=== PATIENT | female | born 1960 | race Caucasian/White ===

== ENCOUNTER → 2017-12-24 10:45 | Outpatient (CLI) | payer OTHER, SELFPAY ==
[2017-12-24 12:39] LABS: Alanine Aminotransferase 27 IU/L (9-52); Albumin 4.5 g/dL (3.5-5.0); Albumin Globulin Ratio 1.5 (1.0-2.8); Alkaline Phosphatase 80 U/L (38-126); Aspartate Aminotransferase 22 IU/L (14-36); Bilirubin Total 0.6 mg/dL (0.2-1.3); Blood Urea Nitrogen 12 mg/dL (7-17); Carbon Dioxide 28 mmol/L (22-32); Chloride 102 mmol/L (98-107); Cholesterol 146 mg/dL (140-199); Estimated Glomerular Filt Rate > 60.0 mL/min (>60); Glucose 227 mg/dL (70-100); HDL Cholesterol 38 mg/dL (40-60); HEMOLYSIS < 15 (0-50); LDL Cholesterol Calculated 76 mg/dL (<100); Potassium 4.4 mmol/L (3.4-5.1); Sodium 141 mmol/L (137-145); Total Protein 7.5 g/dL (6.3-8.2); Triglycerides 159 mg/dL (35-150)
[2017-12-24 13:39] LABS: Hemoglobin A1C% w Est Avg Glu 9.1 % (4.0-6.0)
[2017-12-24 17:25] LABS: Microalbumi Creatinin Ratio Ur 8.8 ug/mg CR (<30); Microalbumin Urine Random < 0.6 mg/dL (0-1.6)
== END ==
PROVIDERS: PCP Physician Assistant; Visit Provider Physician Assistant
DX: E11.65 Type 2 diabetes mellitus with hyperglycemia (principal); E78.2 Mixed hyperlipidemia
CPT/HCPCS: 36415; 80053; 80061; 82043; 82570; 83036

== ENCOUNTER 2018-03-13 06:19 | Day surgery (SDC) | payer OTHER, SELFPAY ==
[2018-02-27 13:45] VITALS: BMI 24.7
--- NOTE | 2018-03-13 | PATH_ITS ---
[facility] Accession Number: [id number] . 01 Material submitted: . CERVIX . 01 Clinical history: . LEEP CONE BIOPSY . 02 Diagnosis: LEEP Cervical Biopsy: High-grade squamous intraepithelial lesion (JEROME-2) present in the sections from the 12-3 o'clock quadrant. Inked biopsy margins appear negative for significant atypia. Negative for evidence of invasive malignancy. MRV/03/16/2018 . 02 Electronically signed: . Marcial Ferrari MD, Pathologist NPI- [id number] . 01 Gross description: . Received in formalin, labeled LEEP cone biopsy of the cervix, SS 6 o'clock, LS 12 o'clock, is a cervical LEEP biopsy in two pieces (1.2 cm 12-6 o'clock, 2.1 cm 3-9 o'clock, 1.0 cm superficial to deep) oriented with two black sutures (short-6 o'clock, long-12 o'clock). The mucosa is cruz-brown, smooth, shiny. The resection margin is pale porras and finely granular. No nodules, masses, or lesions are identified. . Also submitted is an unoriented cervical biopsy (diameter - 1.6 x 1.3 cm, superficial-deep - 0.4 cm) with porras-pink, smooth, shiny mucosa and a pale porras finely granular resection margin. No nodules, masses, or lesions are identified. . Ink code: Black - deep; blue - radial; orange - os/endocervical canal. Section code: Oriented cervical LEEP biopsy is radially sectioned and entirely submitted clockwise from 12 o'clock - (A1) 12-3 o'clock; (A2) 3-6 o'clock; (A3) 6-9 o'clock; (A4) 9-12 o'clock; (A5-A6) unoriented cervical biopsy, radially sectioned. [id number]) /FRR . 02 Pathologist provided ICD-10: N87.1 . 02 CPT . 226357 Performed at: [facility] [address] [id number] MD Cr Vazquez MD Phone: [phone] Performed at: 02 [facility] [address] [place] [id number] MD Blas Kapadia MD Phone: [phone]
[2018-03-13 07:13] VITALS: BMI 24.7
[2018-03-13 07:24] VITALS: BP 109/66; PULSE 86; RESP 16; TEMP 36.4; O2SAT 94
[2018-03-13] MEDS: LACTATED RINGERS 1,000 ML 42 ML IV (07:30)
--- NOTE | 2018-03-13 07:33 | SUR.OPER ---
Lithotomy on padded OR bed, head on pillow, arms secured on padded arm boards at <90 degrees abduction. Legs secured in padded yellow fins stirrups.
--- NOTE | 2018-03-13 07:50 | PM.PREOP ---
Pre-operative Note Interval Note Pre-op Check: Yes History & Physical exam performed today by Physician Changes: No
[2018-03-13 08:39] VITALS: BP 116/61; PULSE 89; RESP 12; TEMP 36.6; O2SAT 97
[2018-03-13 08:44] VITALS: BP 113/62; PULSE 92; RESP 15; O2SAT 96
[2018-03-13 08:49] VITALS: BP 106/60; PULSE 85; RESP 14; O2SAT 96
[2018-03-13 08:55] VITALS: BP 102/62; PULSE 84; RESP 12; TEMP 36.3; O2SAT 97
[2018-03-13 09:20] VITALS: BP 101/69; PULSE 81; RESP 16; TEMP 36.5; O2SAT 95
--- NOTE | 2018-03-16 07:47 | PM.GYNOP.1 ---
Operative Date/Time/Diagnoses Date of procedure: 03/13/18 Time of procedure: 09:15 Pre-op diagnosis: JEROME 2-3 Post-op diagnosis: same Procedure: Procedures Operation Date: 03/13/18 07:45 Actual Procedures Side Surgeon p LEEP Procedure Herlinda Lynne MD Indications: JEROME 2-3 Surgeon: Herlinda Lynne Anesthesia Type: General (Mac) Operative Notes Findings: Lugol's light circumferentially around the cervical os Brisk bleeding at the 7 o'clock position Closure Type: not applicable Specimen(s): other (Anterior lip of the cervix, posterior lip of the cervix, endocervical component) Applied: catheter (In and out) Estimated blood loss (mL): 50 Procedure in detail: After informed consent was obtained, the patient was taken to the operating room where she was placed in the dorsal supine position. After adequate mac anesthesia was achieved, she was placed in the dorsal lithotomy position, and prepped and draped in the usual sterile fashion. A time-out was performed. A plastic coated bivalve speculum was placed into the vagina. A plastic coated single-tooth tenaculum was placed on the anterior lip of the cervix. Lugol's was applied to the cervix. Using the 1.5 cm loop, the anterior lip of the cervix was excised, the posterior lip of the cervix was excised, and an endocervical component was obtained. The Bovie was used to achieve hemostasis on the base of the cone. There was a brisk bleeder at 7 o'clock and a rkdkrh-xw-mbwxd suture with 2 0 chromic was placed for hemostasis. Gel-Foam was placed in the base of the cone. The plastic coated single-tooth tenaculum was removed from the anterior lip of the cervix. The plastic coated bivalve speculum was removed from the vagina. Sponge, lap, and instrument counts were correct x2. Patient tolerated the procedure well, was taken to PACU in stable condition. The anterior lip of the cervix was tagged with a long suture. The posterior lip of the cervix was tagged with a short suture. The endocervical component was untagged. Complications: none Post-operative Condition: stable Disposition: PACU Plan for aftercare: Home after recovery
--- NOTE | 2018-03-16 07:51 | P.OP_ITS ---
Operative Date/Time/Diagnoses Date of procedure: 03/13/18 Time of procedure: 09:15 Pre-op diagnosis: JEROME 2-3 Post-op diagnosis: same Procedure: Procedures Operation Date: 03/13/18 07:45 Actual Procedures Side Surgeon p LEEP Procedure Herlinda Lynne MD Indications: JEROME 2-3 Surgeon: Herlinda Lynne Anesthesia Type: General (Mac) Operative Notes Findings: Lugol's light circumferentially around the cervical os Brisk bleeding at the 7 o'clock position Closure Type: not applicable Specimen(s): other (Anterior lip of the cervix, posterior lip of the cervix, endocervical component) Applied: catheter (In and out) Estimated blood loss (mL): 50 Procedure in detail: After informed consent was obtained, the patient was taken to the operating room where she was placed in the dorsal supine position. After adequate mac anesthesia was achieved, she was placed in the dorsal lithotomy position, and prepped and draped in the usual sterile fashion. A time -out was performed. A plastic coated bivalve speculum was placed into the vagina. A plastic coated single-tooth tenaculum was placed on the anterior lip of the cervix. Lugol's was applied to the cervix. Using the 1.5 cm loop, the anterior lip of the cervix was excised, the posterior lip of the cervix was excised, and an endocervical component was obtained. The Bovie was used to achieve hemostasis on the base of the cone. There was a brisk bleeder at 7 o' clock and a leqwey-pu-oijac suture with 2 0 chromic was placed for hemostasis. Gel-Foam was placed in the base of the cone. The plastic coated single-tooth tenaculum was removed from the anterior lip of the cervix. The plastic coated bivalve speculum was removed from the vagina. Sponge, lap, and instrument counts were correct x2. Patient tolerated the procedure well, was taken to PACU in stable condition. The anterior lip of the cervix was tagged with a long suture. The posterior lip of the cervix was tagged with a short suture. The endocervical component was untagged. Complications: none Post-operative Condition: stable Disposition: PACU Plan for aftercare: Home after recovery
--- NOTE | 2018-03-16 07:51 | PM.HP.1 ---
History of Present Illness Date Patient Seen: 03/13/18 Time Patient Seen: 07:35 Chief complaint: LEEP [id number] Narrative: ASCUS on Pap cannot rule out high-grade Cervical stenosis Patient History Medical History Pap smear anus w ASC-US (Acute) Postmenopausal (Acute) Uncontrolled diabetes mellitus type 2 without complications (Acute) Hyperlipemia (Chronic) Chickenpox (Resolved) Mumps (Resolved) Surgical History History of third molar tooth extraction Status post laparoscopic cholecystectomy Family & Social History Tobacco & Substance use: Smoking Status Never smoker alcohol intake current alcohol intake frequency holiday/special occasion Substance Use Type does not use Meds Home Medications Medication Instructions Recorded Confirmed Type CHOLECALCIFEROL (VITAMIN D3) 1,000 iu PO Q DAY #0 11/21/11 03/13/18 History (Vitamin D-3) Fish Oil 1,200 mg PO Q DAY #0 11/21/11 03/13/18 History MULTIVITAMIN 1 cap PO Q DAY #0 11/21/11 03/13/18 History Coenzyme Q10 (#COENZYME Q-10) 300 mg PO Q DAY #0 12/10/11 03/13/18 History metformin 1,000 mg PO BID #180 tab 01/21/17 03/13/18 Rx atorvastatin 40 mg PO HS #90 tab 07/14/17 03/13/18 Rx albuterol sulfate 90 mcg/actuation 2 puff INHALATION Q6H PRN #1 each 10/04/17 03/13/18 Rx breath activated powder inhaler insulin glargine (U-100) 100 40 unit SUBCUT BEDTIME #20 ml 01/12/18 03/13/18 Rx unit/mL subcutaneous solution oxycodone-acetaminophen [Percocet] 1 tab PO Q4-6H PRN #14 tab 03/13/18 Rx paroxetine HCl [Paxil] 20 mg PO DAILY 03/13/18 03/13/18 History Allergies Allergy/AdvReac Type Severity Reaction Status Date / Time No Known Drug Allergies Allergy Verified 03/13/18 07:10 Exam Vital Signs (past 8 hours): Oxygen Delivery Method Room Air Narrative Exam Narrative: HEENT: No thyromegaly, no anterior cervical or supraclavicular lymphadenopathy. Lungs:Clear to auscultation bilaterally, no wheezes. Cardiovascular: Regular rate and rhythm, no murmurs, rubs, or gallops. Abdomen: No scars. No hepatosplenomegaly. No masses palpable. External genitalia: Normal Vagina: Normal Cervix: Normal Bimanual exam: 6 Week size uterus. Mobile.] Rectal: No masses. Assessment & Plan (1) Pap smear of cervix with ASCUS, cannot exclude HGSIL: Current visit: No Status: Acute (2) Cervical stenosis (uterine cervix): Current visit: No Status: Acute Plan: Assessment/Plan Narrative: Assessment: 57-year-old with ASCUS on Pap cannot rule out high-grade and positive high-risk HPV Cervical stenosis Plan: LEEP cone biopsy of the cervix The risks, benefits, and alternatives to the procedure were explained to the patient. The risks including bleeding, and infection. She understands these risks and agrees to proceed. A full PAR-Q was held and consent form was signed.
== END 2018-03-13 09:30 | disposition home or self-care (01) ==
PROVIDERS: PCP Physician Assistant; Visit Provider Obstetrics & Gynecology
PROC: 0UBC7ZZ Excision of Cervix, Via Natural or Artificial Opening (ICD-10-PCS; CPT 57522; principal; 2018-03-13 07:45)
DX: N87.1 Moderate cervical dysplasia (principal); N88.2 Stricture and stenosis of cervix uteri; E11.9 Type 2 diabetes mellitus without complications; E78.5 Hyperlipidemia, unspecified
CPT/HCPCS: 57522; J2250; J2704; J3010

== ENCOUNTER → 2018-06-08 14:03 | Outpatient (CLI) | payer OTHER, SELFPAY ==
--- NOTE | 2018-06-08 14:06 | DI.MG.S_ITS ---
BILATERAL DIGITAL SCREENING MAMMOGRAM 3D/2D WITH CAD: 06/08/2018 CLINICAL: Routine screening. Comparison is made to exams dated: 01/23/2017 mammogram - [facility], 11/21/2010 mammogram, and 04/01/2008 mammogram - [facility]. There are scattered fibroglandular elements in both breasts. Current study was also evaluated with a Computer Aided Detection (CAD) system. No significant masses, calcifications, or other findings are seen in either breast. There has been no significant interval change. IMPRESSION: NEGATIVE There is no mammographic evidence of malignancy. A 1 year screening mammogram is recommended. This exam was interpreted at Station ID: [id number]. NOTE: For mammograms, a report in lay terms will be sent to the patient. Approximately 15% of breast malignancies will not be visualized mammographically. In the management of a palpable breast mass, a negative mammogram must not discourage biopsy of a clinically suspicious lesion. Electronically Signed By: Chris goyal/kenn:06/08/2018 17:43:54 letter sent: Normal Exam ACR BI-RADS Category 1: Negative 3341F
== END ==
PROVIDERS: PCP Physician Assistant; Visit Provider Physician Assistant
DX: Z12.31 Encounter for screening mammogram for malignant neoplasm of breast (principal)
CPT/HCPCS: 77063; 77067

== ENCOUNTER → 2018-08-26 09:13 | Outpatient (CLI) | payer OTHER, SELFPAY ==
[2018-08-26 10:38] LABS: Hemoglobin A1C% w Est Avg Glu 9.3 % (4.0-6.0)
[2018-08-26 11:14] LABS: Alanine Aminotransferase 27 IU/L (9-52); Albumin 4.7 g/dL (3.5-5.0); Albumin Globulin Ratio 1.6 (1.0-2.8); Alkaline Phosphatase 83 U/L (38-126); Aspartate Aminotransferase 21 IU/L (14-36); Bilirubin Total 0.4 mg/dL (0.2-1.3); Blood Urea Nitrogen 15 mg/dL (7-17); Calcium 10.3 mg/dL (8.4-10.2); Carbon Dioxide 27 mmol/L (22-32); Chloride 102 mmol/L (98-107); Cholesterol 160 mg/dL (140-199); Estimated Glomerular Filt Rate > 60.0 mL/min (>60); Globulin 2.9 g/dL (1.7-4.1); Glucose 140 mg/dL (70-100); HDL Cholesterol 39 mg/dL (40-60); HEMOLYSIS < 15 (0-50); LDL Cholesterol Calculated 98 mg/dL (<100); Potassium 4.6 mmol/L (3.4-5.1); Sodium 140 mmol/L (137-145); Total Protein 7.6 g/dL (6.3-8.2); Triglycerides 117 mg/dL (35-150)
[2018-08-26 12:00] LABS: Creatinine Urine Random 83.7 mg/dL
[2018-08-26 12:05] LABS: Microalbumi Creatinin Ratio Ur 16.7 ug/mg CR (<30); Microalbumin Urine Random 1.4 mg/dL (0-1.6)
== END ==
PROVIDERS: PCP Physician Assistant; Visit Provider Physician Assistant
DX: E11.65 Type 2 diabetes mellitus with hyperglycemia (principal); E78.2 Mixed hyperlipidemia
CPT/HCPCS: 36415; 80053; 80061; 82043; 82570; 83036

== ENCOUNTER → 2019-06-16 10:30 | Outpatient (CLI) | payer OTHER, SELFPAY ==
[2019-06-16 11:04] LABS: Hemoglobin A1C% w Est Avg Glu 9.6 % (4.0-6.0)
[2019-06-16 11:07] LABS: Cholesterol 149 mg/dL (140-199); HDL Cholesterol 37 mg/dL (40-60); LDL Cholesterol Calculated 87 mg/dL (<100); Triglycerides 125 mg/dL (35-150)
== END ==
PROVIDERS: PCP Physician Assistant; Visit Provider Internal Medicine Endocrinology, Diabetes & Metabolism
DX: E11.65 Type 2 diabetes mellitus with hyperglycemia (principal); E78.2 Mixed hyperlipidemia; E11.9 Type 2 diabetes mellitus without complications; Z79.4 Long term (current) use of insulin
CPT/HCPCS: 36415; 80061; 83036

== ENCOUNTER → 2020-03-27 12:16 | Outpatient (CLI) | payer OTHER, SELFPAY ==
[2020-03-29 08:26] LABS: COVID19 Sendout Not Detected (Not Detect)
== END ==
PROVIDERS: PCP Nurse Practitioner Family; Visit Provider Physician Assistant
DX: Z11.59 Encounter for screening for other viral diseases (principal)
CPT/HCPCS: 87635

== ENCOUNTER → 2020-04-10 09:50 | Outpatient (CLI) | payer OTHER, SELFPAY ==
[2020-04-10 12:02] LABS: COVID19 -Nasal RAPID Negative (Negative)
== END ==
PROVIDERS: PCP Nurse Practitioner Family; Visit Provider Physician Assistant
DX: Z11.59 Encounter for screening for other viral diseases (principal)
CPT/HCPCS: 87635

== ENCOUNTER → 2020-05-09 09:08 | Outpatient (CLI) | payer OTHER, SELFPAY ==
[2020-05-09 09:43] LABS: Hematocrit 42.7 % (36-46); Hemoglobin 14.7 g/dL (12.0-16.0); Mean Corpuscular HGB Conc 34.4 % (30-36); Mean Corpuscular Volume 95.9 fL (80-100); Platelet Count 331 X10^3/uL (150-400); Red Blood Cell Count 4.45 X10^6/uL (4.0-5.2); Red Cell Distribution Width 12.5 % (11.6-14.8); White Blood Cell Count 5.3 X10^3/uL (4.5-11.0)
[2020-05-09 10:10] LABS: Alanine Aminotransferase 53 IU/L (<35); Albumin 4.5 g/dL (3.5-5.0); Albumin Globulin Ratio 1.5 (1.0-2.8); Alkaline Phosphatase 87 U/L (38-126); Aspartate Aminotransferase 27 IU/L (14-36); BUN Creatinine Ratio 23.2 (6-22); Bilirubin Total 0.7 mg/dL (0.2-1.3); Blood Urea Nitrogen 13 mg/dL (7-17); Calcium 10.6 mg/dL (8.4-10.2); Carbon Dioxide 31 mmol/L (22-32); Chloride 99 mmol/L (98-107); Cholesterol 175 mg/dL (140-199); Estimated Glomerular Filt Rate > 60.0 mL/min (>60); Globulin 3.1 g/dL (1.7-4.1); Glucose 239 mg/dL (70-100); HDL Cholesterol 31 mg/dL (40-60); HEMOLYSIS < 15 (0-50); LDL Cholesterol Calculated 92 mg/dL (<100); Potassium 3.8 mmol/L (3.4-5.1); Sodium 137 mmol/L (137-145); Total Protein 7.6 g/dL (6.3-8.2); Triglycerides 259 mg/dL (35-150)
[2020-05-09 10:14] LABS: Hemoglobin A1C% w Est Avg Glu 10.1 % (4.0-6.0)
== END ==
PROVIDERS: PCP Nurse Practitioner Family; Referring Provider Nurse Practitioner Family; Visit Provider Nurse Practitioner Family
DX: Z00.00 Encounter for general adult medical examination without abnormal findings (principal); E11.65 Type 2 diabetes mellitus with hyperglycemia; E78.2 Mixed hyperlipidemia
CPT/HCPCS: 36415; 80053; 80061; 83036; 85027

== ENCOUNTER → 2020-06-15 12:49 | Outpatient (CLI) | payer OTHER, SELFPAY ==
--- NOTE | 2020-06-15 14:17 | DIET.PN ---
Diabetes Intake: Initial Assessment Assess: Ms. Alan is a 59 yof referred for type 2 diabetes. She reports long standing hx with aggressively increasing A1c. She has been monitoring her fasting blood sugar and aiming to walk 9000 steps daily. She admits her downfalls are starchy foods and night time snacking. Labs: Per pt report: A1c: 10.1 Tot chol: 175 LDL: 92 HDL: 31 Tr Meds: lantus 25u am/ 20 u pm ; metf 1000mg BID Diet: per 24 hr recall: B: sc eggs or cottage cheese L: protein shake w/ spinach fruit D: pork chop w/ salad; stewed chicken over rice Sn: popcorn, chips, veggies w/ ranch, yogurt, ice cream Wt: 135lb Ht: 64in BMI: 23.2 DX: Altered nutrition related laboratory values related to impaired glucose metabolism, lack of previous exposure to nutrition information as evidenced by pt report, diagnosis of diabetes, previous diet high in refined carbohydrates. Intervention: 1. Completed intake assessment. Discussed barriers to care. 2. Discussed pathophysiology of diabetes. Reviewed A1c and its correlation to blood glucose numbers. Discussed recommended BG ranges. 3. Discussed importance of self-monitoring, how often, and when to check. 4. Reviewed hyper/hypoglycemia and treatment. 5. Reviewed safe disposal of equipment (strip/lancets/insulin needles). 6. Created SMART goals for pt self-care and success. 7. Discussed program curriculum outline and class needs based on individual goals. SMART Goals: 1. Pt goal of A1c <7.0 through dietary changes including consistent carb intake, 8/16 intermittent fasting, regular exercise, and monitoring fasting and 2 hr PP 1 meal/day. Monitor/Evaluate: Pt will attend full DSME program. Exercise class scheduled Jun 27.
== END ==
PROVIDERS: PCP Nurse Practitioner Family; Referring Provider Nurse Practitioner Family; Visit Provider Nurse Practitioner Family
DX: E11.9 Type 2 diabetes mellitus without complications (principal); Z79.4 Long term (current) use of insulin; Z71.3 Dietary counseling and surveillance
CPT/HCPCS: G0108

== ENCOUNTER → 2020-06-28 16:09 | Outpatient (CLI) | payer OTHER, SELFPAY ==
--- NOTE | 2020-06-28 16:10 | DI.MG.S_ITS ---
BILATERAL DIGITAL SCREENING MAMMOGRAM 3D/2D WITH CAD: 06/28/2020 CLINICAL: Routine screening. Comparison is made to exams dated: 06/08/2018 mammogram and 01/23/2017 mammogram - [facility]. There are scattered fibroglandular elements in both breasts. Current study was also evaluated with a Computer Aided Detection (CAD) system. No significant masses, calcifications, or other findings are seen in either breast. There has been no significant interval change. IMPRESSION: NEGATIVE There is no mammographic evidence of malignancy. A 1 year screening mammogram is recommended. This exam was interpreted at Station ID: [id number]. NOTE: For mammograms, a report in lay terms will be sent to the patient. Approximately 15% of breast malignancies will not be visualized mammographically. In the management of a palpable breast mass, a negative mammogram must not discourage biopsy of a clinically suspicious lesion. Electronically Signed By: Audi liao/kenn:06/28/2020 16:45:53 letter sent: Normal Exam ACR BI-RADS Category 1: Negative 3341F
== END ==
PROVIDERS: PCP Nurse Practitioner Family; Referring Provider Nurse Practitioner Family; Visit Provider Nurse Practitioner Family
DX: Z12.31 Encounter for screening mammogram for malignant neoplasm of breast (principal)
CPT/HCPCS: 77063; 77067

== ENCOUNTER → 2020-07-04 13:50 | Outpatient (CLI) | payer OTHER, SELFPAY ==
--- NOTE | 2020-07-04 15:15 | DIET.PN ---
Diabetes: Healthy Eating 1 Intervention: ? Discussed pathophysiology of diabetes and impact of nutrition/diet on blood sugar control.? Discussed fed versus non-fed state.?? ? Reviewed importance of Balance, Variety, and Moderation. ? Discussed the effect of carbohydrates/protein/fat on blood sugar control.? ? Stressed importance of consistent carbohydrate intake at each meal and provided instructions for recommended servings/portions of carbohydrates/protein per meal. Provided educational material. ? Reviewed carbohydrate counting and measuring carbohydrate content via serving sizes and reading nutrition labels.? Provided handouts.?? ? Discussed the difference between simple versus complex carbohydrates and the effect of fiber on blood sugar control.? Discussed various methods to increase fiber content in diet. ? Discussed the plate method for creating more carbohydrate conscious balanced meals. ? Stressed importance of meal timing and not going >4-5 hours between meals. Encouraged adding protein to evening snack to support glucose control overnight. ? Discussed importance of making dietary habits part of lifestyle change.
== END ==
PROVIDERS: PCP Nurse Practitioner Family; Referring Provider Nurse Practitioner Family; Visit Provider Nurse Practitioner Family
DX: E11.9 Type 2 diabetes mellitus without complications (principal); Z71.3 Dietary counseling and surveillance
CPT/HCPCS: G0109

== ENCOUNTER → 2020-07-11 13:59 | Outpatient (CLI) | payer OTHER, SELFPAY ==
--- NOTE | 2020-07-11 15:36 | DIET.PN ---
Diabetes: Healthy Eating 2 Intervention: Fats effects on glucose, weight, heart disease, cholesterol Sat Vs Unsat Protein- animal and plant based options Low, med, high fat meats Sugar substitutes Sodium Health claims Grocery shopping guidelines Eating away from home Alcohol Sick day guidelines Ketone Testing
== END ==
PROVIDERS: PCP Nurse Practitioner Family; Referring Provider Nurse Practitioner Family; Visit Provider Nurse Practitioner Family
DX: E11.9 Type 2 diabetes mellitus without complications (principal); Z71.3 Dietary counseling and surveillance
CPT/HCPCS: G0109

== ENCOUNTER → 2020-07-18 13:49 | Outpatient (CLI) | payer OTHER, SELFPAY ==
--- NOTE | 2020-07-18 15:49 | DIET.PN ---
Diabetes Physiology and Medications: Intervention 1. Diabetes physiology 2. Detecting and treatment of acute and chronic complications 3. Diagnosis of and difference in types of diabetes 4. Self-monitoring and pattern management a. Demonstrate glucometer and control testing b. Explain BG results and action to take when out of range. 5. Foot , eye, dental care 6. Medications a. Oral medication classification b. Injectable c. Insulin i. Injection protocol ii. Other delivery methods
== END ==
PROVIDERS: PCP Nurse Practitioner Family; Referring Provider Nurse Practitioner Family; Visit Provider Nurse Practitioner Family
DX: E11.9 Type 2 diabetes mellitus without complications (principal); Z71.3 Dietary counseling and surveillance
CPT/HCPCS: G0109

== ENCOUNTER → 2020-07-25 13:42 | Outpatient (CLI) | payer OTHER, SELFPAY ==
--- NOTE | 2020-07-25 16:14 | DIET.PN ---
Diabetes Exercise/Lifestyle change: 1. Importance of exercise 2. FITT (frequency, intensity, time, type) 3. Strength training tips and guidelines 4. Glucose monitoring/ranges before and after a. Carbohydrate needs based on glucose ranges and duration/intensity of exercise b. Rule of 15 5. Proper foot attire 6. Developing strategies for behavior change 7. SMART Goal Setting 8. Home exercise routine demonstration (as a class)
== END ==
PROVIDERS: PCP Nurse Practitioner Family; Referring Provider Nurse Practitioner Family; Visit Provider Nurse Practitioner Family
DX: E11.9 Type 2 diabetes mellitus without complications (principal); Z71.3 Dietary counseling and surveillance
CPT/HCPCS: G0109

== ENCOUNTER → 2020-07-26 13:43 | Outpatient (CLI) | payer OTHER, SELFPAY ==
--- NOTE | 2020-07-26 14:47 | DIET.PN ---
DIABETES Nutrition Initial Assessment:? ASSESS:?? Ms. Alan is a 59 yof?referred for type 2 diabetes seen as part of DSME program. Since beginning the program, she has made several changes to her eating patterns including carbo counting, portion control, including protein with meals and snacks, and eating breakfast. She endorses feeling hungrier since she is eating in the morning now, but has been noticing changes in her glucose. She has had a few hyperglycemic events recently, but believes this could be related to new strips with a new code. ??? LABS: Per pt report:? 105-180 (>200 x2) ? MEDS:?? lantus 25 u am/20 u pm; metf 1000mg BID ? DIET: Per 24-hour recall:? Eating Out: 1-3 x/wk Changes in Appetite: increased Nutrition Supplements: Verna ACV gummies ? Weight: 138 Height: 64in BMI: ? 23.7 ? Exercise:? walking most days NUTRITION DX 1. Altered Nutrition related labs related to impaired glucose metabolism, lack of previous exposure to accurate nutrition information as evidenced by pt report, dx of diabetes, previous diet high in refined carbohydrates.? INTERVENTION(s): 1. Reviewed pathophysiology of diabetes and impact of nutrition/diet on blood sugar control.? Discussed fed versus non-fed state.?? 2. Discussed the effect of carbohydrates/protein/fat on blood sugar control.? 3. Reviewed carbohydrate counting and measuring carbohydrate content via serving sizes and reading nutrition labels.? 4. Stressed importance of meal timing and not going >4-5 hours between meals. Encouraged adding protein to evening snack to support glucose control overnight. Patient agreeable. 5. Discussed healthy weight loss goals of 1-2lbs per week through diet and exercise.? Pt agreeable to walking at least 30 minutes daily. 6. Recommend monitoring fasting and alternating 2 hr PP mealtime glucose. 7. Will discuss medication management as needed following new labs. MONITOR/EVALUATE: Anticipate good compliance.? Nutrition follow-up scheduled for 1 month.
== END ==
PROVIDERS: PCP Nurse Practitioner Family; Referring Provider Nurse Practitioner Family; Visit Provider Nurse Practitioner Family
DX: E11.9 Type 2 diabetes mellitus without complications (principal); Z79.4 Long term (current) use of insulin
CPT/HCPCS: G0109

== ENCOUNTER → 2020-08-02 11:03 | Outpatient (CLI) | payer OTHER, SELFPAY ==
[2020-08-02] MEDS: COVID-19 VACC, Ad26(JANSSEN)/PF 0.5 ML IM (11:50)
== END ==
PROVIDERS: PCP Nurse Practitioner Family; Visit Provider Internal Medicine
DX: Z23 Encounter for immunization (principal)
CPT/HCPCS: 0031A; 91303

== ENCOUNTER → 2020-08-09 11:02 | Outpatient (CLI) | payer OTHER, SELFPAY ==
[2020-08-09 12:20] LABS: Hemoglobin A1C% w Est Avg Glu 8.3 % (4.0-6.0)
[2020-08-09 12:26] LABS: Alanine Aminotransferase 25 IU/L (<35); Albumin 4.9 g/dL (3.5-5.0); Albumin Globulin Ratio 1.5 (1.0-2.8); Alkaline Phosphatase 77 U/L (38-126); Aspartate Aminotransferase 31 IU/L (14-36); BUN Creatinine Ratio 28.1 (6-22); Bilirubin Total 0.6 mg/dL (0.2-1.3); Blood Urea Nitrogen 16 mg/dL (7-17); Calcium 10.8 mg/dL (8.4-10.2); Carbon Dioxide 29 mmol/L (22-32); Chloride 102 mmol/L (98-107); Cholesterol 157 mg/dL (140-199); Estimated Glomerular Filt Rate > 60.0 mL/min (>60); Globulin 3.3 g/dL (1.7-4.1); Glucose 94 mg/dL (70-100); HDL Cholesterol 33 mg/dL (40-60); HEMOLYSIS < 15 (0-50); LDL Cholesterol Calculated 97 mg/dL (<100); Potassium 3.9 mmol/L (3.4-5.1); Sodium 138 mmol/L (137-145); Total Protein 8.2 g/dL (6.3-8.2); Triglycerides 137 mg/dL (35-150)
[2020-08-10 13:18] LABS: Parathyroid Hormone, Intact 109 pg/mL (15-65)
== END ==
PROVIDERS: PCP Nurse Practitioner Family; Referring Provider Nurse Practitioner Family; Visit Provider Nurse Practitioner Family
DX: Z00.00 Encounter for general adult medical examination without abnormal findings (principal); E11.65 Type 2 diabetes mellitus with hyperglycemia; E83.52 Hypercalcemia; E78.2 Mixed hyperlipidemia
CPT/HCPCS: 36415; 80053; 80061; 82310; 83036; 83970

== ENCOUNTER → 2020-08-30 13:51 | Outpatient (CLI) | payer OTHER, SELFPAY ==
--- NOTE | 2020-08-30 14:41 | DIET.PN ---
Diabetes Follow Up Assess: Ms. Alan is a 59 yof seen for 3 mo follow up visit. She continues to follow recommended nutritional guidelines including balanced meals, portion control, consistent meal times, and added protein. She has been exercising daily. Labs: A1c: 8.3 (from 10.1) Meds: lantus 25 u am/20 u pm; metf 1000mg BID Dietary changes: limiting sugary evening snacks; balanced meals Ht: 64in Wt: 139lb BMI: 23.9 Nutrition DX: Altered nutrition related laboratory values related to impaired glucose metabolism, lack of previous exposure to nutrition information as evidenced by pt report, diagnosis of diabetes, previous diet high in refined carbohydrates. Intervention: 1. Completed follow up assessment. Reviewed barriers to care. 2. Reviewed new labs and importance of continued BG monitoring. 3. Reviewed SMART goals and made modifications where appropriate including wt management, activity, and A1c goals. 4. Discussed plan for ongoing support. Provided information for continued support and success. SMART goals: 1. Pt goal A1c <7.0 and weight of <130 in the next 3 mo through improved dietary changes and daily exercise. Monitor/Evaluate: Pt will follow up in 3 mo to discuss new labs and barriers to care.
== END ==
PROVIDERS: PCP Nurse Practitioner Family; Referring Provider Nurse Practitioner Family; Visit Provider Nurse Practitioner Family
DX: E11.9 Type 2 diabetes mellitus without complications (principal); Z79.4 Long term (current) use of insulin
CPT/HCPCS: G0109

== ENCOUNTER → 2020-09-08 14:41 | Outpatient (CLI) | payer OTHER, SELFPAY | PROVIDERS: PCP Nurse Practitioner Family; Referring Provider Nurse Practitioner Family; Visit Provider Nurse Practitioner Family | DX: M85.851 Other specified disorders of bone density and structure, right thigh (principal); Z78.0 Asymptomatic menopausal state; E11.9 Type 2 diabetes mellitus without complications; E21.0 Primary hyperparathyroidism | CPT/HCPCS: 77080 ==

== ENCOUNTER → 2020-12-06 09:33 | Outpatient (CLI) | payer OTHER, SELFPAY ==
[2020-12-06 10:39] LABS: Alanine Aminotransferase 23 IU/L (<35); Albumin 4.5 g/dL (3.5-5.0); Albumin Globulin Ratio 1.6 (1.0-2.8); Alkaline Phosphatase 77 U/L (38-126); Aspartate Aminotransferase 26 IU/L (14-36); Bilirubin Total 0.4 mg/dL (0.2-1.3); Blood Urea Nitrogen 15 mg/dL (7-17); Calcium 10.3 mg/dL (8.4-10.2); Carbon Dioxide 31 mmol/L (22-32); Chloride 103 mmol/L (98-107); Estimated Glomerular Filt Rate > 60.0 mL/min (>60); Globulin 2.9 g/dL (1.7-4.1); Glucose 144 mg/dL (70-100); HEMOLYSIS < 15 (0-50); Potassium 4.3 mmol/L (3.4-5.1); Sodium 139 mmol/L (137-145); Total Protein 7.4 g/dL (6.3-8.2)
[2020-12-06 11:06] LABS: Vitamin D 25 Hydroxy (D3) 64.3 ng/mL (30.0-100.0)
[2020-12-06 11:10] LABS: Free T4, Direct Thyroxine 0.98 ng/dL (0.78-2.19)
[2020-12-06 11:24] LABS: Thyroid Stimulating Hormone 1.47 uIU/mL (0.47-4.68)
[2020-12-07 11:59] LABS: Calcium 10.4 mg/dL (8.7-10.2); Parathyroid Hormone, Intact 101 pg/mL (15-65)
== END ==
PROVIDERS: PCP Nurse Practitioner Family; Referring Provider Internal Medicine Endocrinology, Diabetes & Metabolism; Visit Provider Internal Medicine Endocrinology, Diabetes & Metabolism
DX: E21.3 Hyperparathyroidism, unspecified (principal); E11.65 Type 2 diabetes mellitus with hyperglycemia; Z79.4 Long term (current) use of insulin; Z68.24 Body mass index [BMI] 24.0-24.9, adult
CPT/HCPCS: 36415; 80053; 82306; 82310; 83970; 84439; 84443

== ENCOUNTER → 2020-12-12 09:53 | Outpatient (CLI) | payer OTHER, SELFPAY ==
[2020-12-12 11:46] LABS: Collection Time Urine 24 Hours; Creatinine 24 Hour Urine 857 mg/day (800-1800); Creatinine Urine Random 57.1 mg/dL; Total Volume Urine 1500 mL
[2020-12-12 12:50] LABS: Calcium 24 Hour Urine 395 mg/day (100-300); Calcium Urine Random 26.3 mg/dL; Collection Time Urine 24 Hours; Total Volume Urine 1500 mL
== END ==
PROVIDERS: PCP Nurse Practitioner Family; Referring Provider Internal Medicine Endocrinology, Diabetes & Metabolism; Visit Provider Internal Medicine Endocrinology, Diabetes & Metabolism
DX: E21.3 Hyperparathyroidism, unspecified (principal); Z68.24 Body mass index [BMI] 24.0-24.9, adult; E11.65 Type 2 diabetes mellitus with hyperglycemia; Z79.4 Long term (current) use of insulin
CPT/HCPCS: 82340; 82570

== ENCOUNTER → 2021-02-21 10:26 | Outpatient (CLI) | payer OTHER, SELFPAY ==
--- NOTE | 2021-02-21 | DI.US.S_ITS ---
PROCEDURE: US THYROID INDICATIONS: HYPERPARATHYROIDISM TECHNIQUE: Real-time scanning was performed of the thyroid gland, with image documentation. COMPARISON: None. FINDINGS: Right: Thyroid lobe measures 4.2 x 1.3 x 1.4 cm, and is homogeneous in echotexture. Left: Thyroid lobe measures 4.6 x 1.5 x 1.7 cm, and is homogenous in echotexture. Isthmus: 3 mm thick. Nodule number: 1 Location: Left mid superior thyroid Size: 2.0 x 1.4 x 1.4 cm. Composition: Predominantly solid Echogenicity: Isoechoic/hypoechoic Shape: wider than tall. Margins: Smooth Echogenic foci: None Total points: 4 ACR TI-RADS category: 4 Recommendation: Fine-needle aspiration Nodule number: 2 Location: Left inferior thyroid Size: 0.8 x 0.5 x 0.6 cm. Composition: Solid Echogenicity: Isoechoic Shape: wider than tall. Margins: Smooth Echogenic foci: Punctate Total points: 6 ACR TI-RADS category: 4 Recommendation: Follow-up ultrasound at 1, 2, 3 and 5 years. Nodule number: 3 Location: Right mid thyroid Size: 0.9 x 0.8 x 0.6 cm. Composition: Solid Echogenicity: Predominantly calcified/hyperechoic Shape: wider than tall. Margins: Irregular Echogenic foci: Macro calcifications Total points: 4 ACR TI-RADS category: 4 Recommendation: Follow-up at 1, 2, 3, and 5 years Nodule number: 4 Location: Right isthmus Size: 1.0 x 0.3 x 0.7 cm. Composition: Solid Echogenicity: Isoechoic Shape: wider than tall. Margins: Smooth Echogenic foci: Punctate Total points: 6 ACR TI-RADS category: 4 Recommendation: Follow-up ultrasound at 1, 2, 3, and 5 years. IMPRESSION: 1. Bilateral thyroid nodules as described above. 2. Fine-needle aspiration of the left mid superior thyroid nodule is recommended. 3. Follow-up of remaining nodules is recommended as described above. ACR TI-RADS definitions and recommendations: TI-RADS 1 (benign): 0 points. FNA not needed. TI-RADS 2 (not suspicious): 2 points. FNA not needed. TI-RADS 3 (mildly suspicious): 3 points. * FNA if 2.5 cm or larger, follow up if 1.5 cm or larger (at 1, 3, and 5 years). TI-RADS 4 (moderately suspicious): 4-6 points. * FNA if 1.5 cm or larger, follow up if 1 cm or larger (at 1, 2, 3, and 5 years). TI-RADS 5 (highly suspicious): 7 points or more. * FNA if 1 cm or larger, follow up if 0.5 cm or larger (every year for 5 years). Dictated by: Juanis Tuttle M.D. on 02/21/2021 at 14:01 Approved by: Juanis Tuttle M.D. on 02/21/2021 at 16:59
== END ==
PROVIDERS: PCP Nurse Practitioner Family; Referring Provider Internal Medicine Endocrinology, Diabetes & Metabolism; Visit Provider Internal Medicine Endocrinology, Diabetes & Metabolism
DX: E21.3 Hyperparathyroidism, unspecified (principal); E04.2 Nontoxic multinodular goiter
CPT/HCPCS: 76536

== ENCOUNTER → 2022-01-16 11:07 | Outpatient (CLI) | payer OTHER, SELFPAY ==
[2022-01-16 12:01] LABS: Hemoglobin 13.9 g/dL (12.0-16.0); Mean Corpuscular HGB Conc 34.9 % (30-36); Mean Corpuscular Volume 94.6 fL (80-100); Platelet Count 335 X10^3/uL (150-400); Red Blood Cell Count 4.23 X10^6/uL (4.0-5.2); Red Cell Distribution Width 12.7 % (11.6-14.8); White Blood Cell Count 6.5 X10^3/uL (4.5-11.0)
[2022-01-16 12:10] LABS: Alanine Aminotransferase 27 IU/L (<35); Albumin 4.7 g/dL (3.5-5.0); Albumin Globulin Ratio 1.6 (1.0-2.8); Alkaline Phosphatase 96 U/L (38-126); Aspartate Aminotransferase 27 IU/L (14-36); BUN Creatinine Ratio 17.5 (6-22); Bilirubin Total 0.5 mg/dL (0.2-1.3); Blood Urea Nitrogen 10 mg/dL (7-17); Calcium 10.8 mg/dL (8.4-10.2); Carbon Dioxide 28 mmol/L (22-32); Chloride 101 mmol/L (98-107); Cholesterol 165 mg/dL (140-199); Estimated Glomerular Filt Rate > 60 mL/min (>60); Globulin 2.9 g/dL (1.7-4.1); Glucose 122 mg/dL (80-110); HDL Cholesterol 52 mg/dL (40-60); HEMOLYSIS < 15 (0-50); LDL Cholesterol Calculated 83 mg/dL (<100); Potassium 4.4 mmol/L (3.4-5.1); Sodium 138 mmol/L (137-145); Total Protein 7.6 g/dL (6.3-8.2); Triglycerides 150 mg/dL (35-150)
[2022-01-16 12:14] LABS: Hemoglobin A1C% w Est Avg Glu 9.4 % (4.0-6.0)
[2022-01-16 12:27] LABS: Vitamin D 25 Hydroxy (D3) 69.3 ng/mL (30.0-100.0)
[2022-01-16 12:41] LABS: TSH w/ Reflex to FT4 1.29 uIU/mL (0.47-4.68)
[2022-01-16 17:13] LABS: Creatinine Urine Random 29.8 mg/dL
[2022-01-16 17:17] LABS: Microalbumin Urine Random < 0.6 mg/dL (0-1.6)
[2022-01-17 04:49] LABS: Hepatitis B Surf AB Quant 58.2 mIU/mL (Immunity>9.9)
[2022-01-17 14:00] LABS: Parathyroid Hormone, Intact 97 pg/mL (15-65)
[2022-01-17 16:47] LABS: Rubella Antibody IgG 12.7 IU/mL (>15)
== END ==
PROVIDERS: PCP Registered Nurse Diabetes Educator; Referring Provider Registered Nurse Diabetes Educator; Visit Provider Registered Nurse Diabetes Educator
DX: Z01.84 Encounter for antibody response examination (principal); E11.65 Type 2 diabetes mellitus with hyperglycemia; E21.0 Primary hyperparathyroidism
CPT/HCPCS: 36415; 80053; 80061; 82043; 82306; 82310; 82570; 83036; 83970; 84443; 85027; 86706; 86735; 86762; 86765

== ENCOUNTER → 2022-02-07 15:39 | Outpatient (CLI) | payer OTHER, SELFPAY ==
--- NOTE | 2022-02-07 15:40 | DI.MG.S_ITS ---
BILATERAL DIGITAL SCREENING MAMMOGRAM 3D/2D WITH CAD: 02/07/2022 CLINICAL: Routine screening. Comparison is made to exams dated: 06/28/2020 mammogram, 06/08/2018 mammogram, and 01/23/2017 mammogram - [facility]. There are scattered areas of fibroglandular density in both breasts (category b / 25%-50% glandular tissue). Current study was also evaluated with a Computer Aided Detection (CAD) system. No significant masses, calcifications, or other findings are seen in either breast. There has been no significant interval change. IMPRESSION: NEGATIVE There is no mammographic evidence of malignancy. A 1 year screening mammogram is recommended. Based on the Tyrer Cuzick model (a risk assessment model) the patient's lifetime risk is 6.3% and her 10 year risk is 2.6%. According to the ACR, ACS, and NCCN guidelines, an annual breast MRI exam along with mammogram is recommended if the patient's lifetime risk is 20% or greater. This exam was interpreted at Station ID: [id number]. NOTE: For mammograms, a report in lay terms will be sent to the patient. Approximately 15% of breast malignancies will not be visualized mammographically. In the management of a palpable breast mass, a negative mammogram must not discourage biopsy of a clinically suspicious lesion. Electronically Signed By: Baron tate/kenn:02/08/2022 08:32:24 letter sent: Normal Exam ACR BI-RADS Category 1: Negative 3341F
== END ==
PROVIDERS: PCP Registered Nurse Diabetes Educator; Referring Provider Registered Nurse Diabetes Educator; Visit Provider Registered Nurse Diabetes Educator
DX: Z12.31 Encounter for screening mammogram for malignant neoplasm of breast (principal)
CPT/HCPCS: 77063; 77067

== ENCOUNTER → 2022-06-22 10:56 | Outpatient (CLI) | payer OTHER, SELFPAY ==
[2022-06-22 12:28] LABS: Alanine Aminotransferase 35 IU/L (<35); Albumin 4.8 g/dL (3.5-5.0); Albumin Globulin Ratio 1.4 (1.0-2.8); Alkaline Phosphatase 92 U/L (38-126); Aspartate Aminotransferase 31 IU/L (14-36); BUN Creatinine Ratio 22.8 (6-22); Bilirubin Total 0.9 mg/dL (0.2-1.3); Blood Urea Nitrogen 13 mg/dL (7-17); Calcium 10.2 mg/dL (8.4-10.2); Carbon Dioxide 27 mmol/L (22-32); Chloride 101 mmol/L (98-107); Cholesterol 172 mg/dL (140-199); Estimated Glomerular Filt Rate > 60 mL/min (>60); Globulin 3.4 g/dL (1.7-4.1); Glucose 220 mg/dL (80-110); HDL Cholesterol 34 mg/dL (40-60); HEMOLYSIS < 15 (0-50); LDL Cholesterol Calculated 102 mg/dL (<100); Phosphorous 2.8 mg/dL (2.8-4.1); Potassium 4.3 mmol/L (3.4-5.1); Sodium 138 mmol/L (137-145); Total Protein 8.2 g/dL (6.3-8.2); Triglycerides 180 mg/dL (35-150)
[2022-06-22 12:44] LABS: Vitamin D 25 Hydroxy (D3) 73.1 ng/mL (30.0-100.0)
[2022-06-26 02:26] LABS: Calcium 10.6 mg/dL (8.7-10.3); Parathyroid Hormone, Intact 105 pg/mL (15-65)
== END ==
PROVIDERS: PCP Registered Nurse Diabetes Educator; Referring Provider Internal Medicine Endocrinology, Diabetes & Metabolism; Visit Provider Internal Medicine Endocrinology, Diabetes & Metabolism
DX: E21.3 Hyperparathyroidism, unspecified (principal); E11.65 Type 2 diabetes mellitus with hyperglycemia; Z79.4 Long term (current) use of insulin
CPT/HCPCS: 36415; 80053; 80061; 82306; 82310; 83036; 83970; 84100

== ENCOUNTER → 2022-10-05 07:40 | Outpatient (CLI) | payer OTHER, SELFPAY ==
[2022-10-05 09:52] LABS: HEMOLYSIS < 15 (0-50); Potassium 4.3 mmol/L (3.4-5.1)
[2022-10-05 09:53] LABS: BUN Creatinine Ratio 29.4 (6-22); Blood Urea Nitrogen 15 mg/dL (7-17); Calcium 9.9 mg/dL (8.4-10.2); Carbon Dioxide 27 mmol/L (22-32); Chloride 102 mmol/L (98-107); Cholesterol 168 mg/dL (140-199); Creatinine Urine Random 79.5 mg/dL; Estimated Glomerular Filt Rate > 60 mL/min (>60); Glucose 201 mg/dL (80-110); HDL Cholesterol 45 mg/dL (40-60); LDL Cholesterol Calculated 98 mg/dL (<100); Phosphorous 2.8 mg/dL (2.8-4.1); Sodium 137 mmol/L (137-145); Triglycerides 126 mg/dL (35-150)
[2022-10-05 09:56] LABS: Microalbumi Creatinin Ratio Ur 32.7 ug/mg CR (<30); Microalbumin Urine Random 2.6 mg/dL (0-1.6)
[2022-10-05 10:09] LABS: Vitamin D 25 Hydroxy (D3) 70.3 ng/mL (30.0-100.0)
[2022-10-06 08:15] LABS: x Labcorp Estim. Avg Glu (eAG) 223 mg/dL (.); x Labcorp Hemoglobin A1c 9.4 % (4.8-5.6)
[2022-10-08 07:50] LABS: Parathyroid Hormone Int 117 pg/mL (15-65)
== END ==
PROVIDERS: PCP Registered Nurse Diabetes Educator; Referring Provider Internal Medicine Endocrinology, Diabetes & Metabolism; Visit Provider Internal Medicine Endocrinology, Diabetes & Metabolism
DX: E11.65 Type 2 diabetes mellitus with hyperglycemia (principal); Z79.4 Long term (current) use of insulin
CPT/HCPCS: 36415; 80048; 80061; 82043; 82306; 82570; 83036; 83970; 84100

== ENCOUNTER → 2022-10-07 07:28 | Outpatient (CLI) | payer OTHER, SELFPAY ==
[2022-10-07 09:56] LABS: Collection Time Urine 24 Hours; Creatinine 24 Hour Urine 727 mg/day (800-1800); Creatinine Urine Random 103.8 mg/dL; Total Volume Urine 700 mL
[2022-10-07 10:40] LABS: Calcium 24 Hour Urine 403 mg/day (100-300); Calcium Urine Random 57.5 mg/dL; Collection Time Urine 24 Hours; Total Volume Urine 700 mL
== END ==
PROVIDERS: PCP Registered Nurse Diabetes Educator; Referring Provider Internal Medicine Endocrinology, Diabetes & Metabolism; Visit Provider Internal Medicine Endocrinology, Diabetes & Metabolism
DX: E11.65 Type 2 diabetes mellitus with hyperglycemia (principal); Z79.4 Long term (current) use of insulin
CPT/HCPCS: 36415; 82340; 82570

== ENCOUNTER → 2023-01-01 10:06 | Outpatient (CLI) | payer OTHER, SELFPAY ==
[2023-01-01 11:22] LABS: Blood Urea Nitrogen 15 mg/dL (7-17); Calcium 10.2 mg/dL (8.4-10.2); Carbon Dioxide 28 mmol/L (22-32); Chloride 101 mmol/L (98-107); Cholesterol 192 mg/dL (140-199); Estimated Glomerular Filt Rate > 60 mL/min (>60); Glucose 116 mg/dL (80-110); HDL Cholesterol 44 mg/dL (40-60); HEMOLYSIS < 15 (0-50); LDL Cholesterol Calculated 115 mg/dL (<100); Potassium 4.2 mmol/L (3.4-5.1); Sodium 138 mmol/L (137-145); Triglycerides 164 mg/dL (35-150)
[2023-01-02 05:13] LABS: Labcorp Hemoglobin (Hb) A1c 8.6 % (4.8-5.6)
[2023-01-02 09:09] LABS: Parathyroid Hormone Int 98 pg/mL (15-65)
[2023-01-02 17:40] LABS: Vitamin D 25 Hydroxy (D3) 58.7 ng/mL (30.0-100.0)
== END ==
PROVIDERS: PCP Registered Nurse Diabetes Educator; Referring Provider Internal Medicine Endocrinology, Diabetes & Metabolism; Visit Provider Internal Medicine Endocrinology, Diabetes & Metabolism
DX: E11.65 Type 2 diabetes mellitus with hyperglycemia (principal); Z79.4 Long term (current) use of insulin; E21.3 Hyperparathyroidism, unspecified
CPT/HCPCS: 36415; 80048; 80061; 82306; 83036; 83970

== ENCOUNTER → 2023-01-02 12:07 | Outpatient (CLI) | payer OTHER, SELFPAY ==
--- NOTE | 2023-01-02 | DI.US.S_ITS ---
PROCEDURE: US THYROID INDICATIONS: MULTIPLE THYROID NODULES TECHNIQUE: Real-time scanning was performed of the thyroid gland, with image documentation. COMPARISON: [facility], [place], US THYROID, 02/21/2021, 10:55. FINDINGS: Right: Thyroid lobe measures 4.5 x 1.1 x 1.5 cm, and is homogeneous in echotexture. Left: Thyroid lobe measures 3.3 x 1.7 x 1.7 cm, and is homogenous in echotexture. Isthmus: 2.6 mm thick. Nodule number: 1 Location: Left mid/superior Size: 2.2 x 1.7 x 1.6 cm. Composition: Predominantly solid Echogenicity: Hypoechoic Shape: wider than tall. Margins: Smooth Echogenic foci: None Total points: 4 ACR TI-RADS category: 4 Nodule number: 2 Location: Left inferior Size: 0.9 x 0.5 x 0.8 cm. Composition: Solid Echogenicity: Isoechoic Shape: wider than tall. Margins: Smooth Echogenic foci: Punctate Total points: 5 ACR TI-RADS category: 4 Nodule number: 3 Location: Right mid Size: 0.9 x 0.8 x 0.8 cm. Composition: Solid Echogenicity: Hypoechoic Shape: wider than tall. Margins: Irregular Echogenic foci: Macro calcifications Total points: 7 ACR TI-RADS category: 5 Nodule number: 4 Location: Isthmus Size: 0.7 x 0.5 x 0.7 cm. Composition: Solid Echogenicity: Isoechoic Shape: wider than tall. Margins: Smooth Echogenic foci: Punctate Total points: 6 ACR TI-RADS category: 4 IMPRESSION: Multiple stable thyroid nodules. Best practice guidelines suggest biopsy of nodule 1 and follow-up schedule as below ACR TI-RADS definitions and recommendations: TI-RADS 1 (benign): 0 points. FNA not needed. TI-RADS 2 (not suspicious): 2 points. FNA not needed. TI-RADS 3 (mildly suspicious): 3 points. * FNA if 2.5 cm or larger, follow up if 1.5 cm or larger (at 1, 3, and 5 years). TI-RADS 4 (moderately suspicious): 4-6 points. * FNA if 1.5 cm or larger, follow up if 1 cm or larger (at 1, 2, 3, and 5 years). TI-RADS 5 (highly suspicious): 7 points or more. * FNA if 1 cm or larger, follow up if 0.5 cm or larger (every year for 5 years). Approved by: Mayco Mg M.D. on 01/02/2023 at 18:29
== END ==
PROVIDERS: PCP Registered Nurse Diabetes Educator; Referring Provider Internal Medicine Endocrinology, Diabetes & Metabolism; Visit Provider Internal Medicine Endocrinology, Diabetes & Metabolism
DX: E04.2 Nontoxic multinodular goiter (principal)
CPT/HCPCS: 76536

== ENCOUNTER → 2023-01-24 11:38 | Outpatient (CLI) | payer OTHER, SELFPAY ==
[2023-01-24 12:24] LABS: Free T4, Direct Thyroxine 1.03 ng/dL (0.78-2.19)
[2023-01-24 12:38] LABS: Thyroid Stimulating Hormone 1.36 uIU/mL (0.47-4.68)
== END ==
PROVIDERS: PCP Registered Nurse Diabetes Educator; Referring Provider Internal Medicine Endocrinology, Diabetes & Metabolism; Visit Provider Internal Medicine Endocrinology, Diabetes & Metabolism
DX: E04.2 Nontoxic multinodular goiter (principal)
CPT/HCPCS: 36415; 84439; 84443

== ENCOUNTER → 2023-02-10 15:59 | Outpatient (CLI) | payer OTHER, SELFPAY ==
--- NOTE | 2023-02-10 16:00 | DI.MG.S_ITS ---
BILATERAL DIGITAL SCREENING MAMMOGRAM 3D/2D WITH CAD: 02/10/2023 CLINICAL: Routine screening. Comparison is made to exams dated: 02/07/2022 mammogram, 06/28/2020 mammogram, and 06/08/2018 mammogram - [facility]. There are scattered areas of fibroglandular density in both breasts (category b / 25%-50% glandular tissue). Current study was also evaluated with a Computer Aided Detection (CAD) system. No significant masses, calcifications, or other findings are seen in either breast. There has been no significant interval change. IMPRESSION: NEGATIVE There is no mammographic evidence of malignancy. A 1 year screening mammogram is recommended. Based on the Tyrer Cuzick model (a risk assessment model) the patient's lifetime risk is 6.2% and her 10 year risk is 2.7%. According to the ACR, ACS, and NCCN guidelines, an annual breast MRI exam along with mammogram is recommended if the patient's lifetime risk is 20% or greater. This exam was interpreted at Station ID: [id number]. NOTE: For mammograms, a report in lay terms will be sent to the patient. Approximately 15% of breast malignancies will not be visualized mammographically. In the management of a palpable breast mass, a negative mammogram must not discourage biopsy of a clinically suspicious lesion. Electronically Signed By: Loretta arguello/kenn:02/11/2023 10:49:08 letter sent: Normal Exam ACR BI-RADS Category 1: Negative [id number]
== END ==
PROVIDERS: PCP Registered Nurse Diabetes Educator; Referring Provider Registered Nurse Diabetes Educator; Visit Provider Registered Nurse Diabetes Educator
DX: Z12.31 Encounter for screening mammogram for malignant neoplasm of breast (principal)
CPT/HCPCS: 77063; 77067

== ENCOUNTER → 2023-02-13 15:02 | Outpatient (CLI) | payer OTHER, SELFPAY ==
[2023-02-13 15:33] LABS: Hemoglobin A1C% w Est Avg Glu 7.6 % (4.0-6.0)
== END ==
PROVIDERS: PCP Registered Nurse Diabetes Educator; Referring Provider Registered Nurse Diabetes Educator; Visit Provider Registered Nurse Diabetes Educator
DX: E11.65 Type 2 diabetes mellitus with hyperglycemia (principal)
CPT/HCPCS: 36415; 83036

== ENCOUNTER → 2023-02-26 14:35 | Outpatient (CLI) | payer OTHER, SELFPAY ==
--- NOTE | 2023-02-26 | DI.US.S_ITS ---
PROCEDURE: US THYROID INDICATIONS: LEFT SUPERIOR THYROID NODULE #1 CONSULT FOR ASPIRATION TECHNIQUE: Real-time scanning was performed of the thyroid gland, with image documentation. COMPARISON: [facility], [place], US THYROID, 01/02/2023, 12:19. FINDINGS: Nodule number: 1 Location: Left lobe superior Size: 2.1 x 1.5 x 1.5 cm. Previously 2.2 x 1.7 x 1.6 cm Composition: Cystic and solid Echogenicity: Hypoechoic Shape: wider than tall. Margins: Smooth Echogenic foci: None Total points: 3 ACR TI-RADS category: 3 IMPRESSION: Nodule #1, at the upper left lobe of the thyroid gland, appears most consistent with TI-RADS category 3 rather than TI-RADS 4 as reported on the most recent exam. The nodule does not meet TI-RADS criteria for FNA recommendation, and planned FNA was cancelled. Future follow-up is recommended as below for nodule #1 and other nodules described in the previous report. ACR TI-RADS definitions and recommendations: TI-RADS 1 (benign): 0 points. FNA not needed. TI-RADS 2 (not suspicious): 2 points. FNA not needed. TI-RADS 3 (mildly suspicious): 3 points. * FNA if 2.5 cm or larger, follow up if 1.5 cm or larger (at 1, 3, and 5 years). TI-RADS 4 (moderately suspicious): 4-6 points. * FNA if 1.5 cm or larger, follow up if 1 cm or larger (at 1, 2, 3, and 5 years). TI-RADS 5 (highly suspicious): 7 points or more. * FNA if 1 cm or larger, follow up if 0.5 cm or larger (every year for 5 years). Dictated by: Audi Rosenthal M.D. on 02/26/2023 at 15:41 Approved by: Audi Rosenthal M.D. on 02/26/2023 at 15:44
== END ==
PROVIDERS: PCP Registered Nurse Diabetes Educator; Referring Provider Internal Medicine Endocrinology, Diabetes & Metabolism; Visit Provider Internal Medicine Endocrinology, Diabetes & Metabolism
DX: E04.2 Nontoxic multinodular goiter (principal)
CPT/HCPCS: 76536

== ENCOUNTER → 2023-05-16 09:34 | Outpatient (CLI) | payer OTHER, SELFPAY ==
[2023-05-16 10:48] LABS: Hemoglobin A1C% w Est Avg Glu 7.4 % (4.0-6.0)
[2023-05-16 10:55] LABS: Creatinine Urine Random 98.7 mg/dL
[2023-05-16 10:56] LABS: BUN Creatinine Ratio 24.6 (6-22); Blood Urea Nitrogen 15 mg/dL (7-17); Calcium 11.1 mg/dL (8.4-10.2); Carbon Dioxide 28 mmol/L (22-32); Chloride 100 mmol/L (98-107); Cholesterol 169 mg/dL (140-199); Estimated Glomerular Filt Rate > 60 mL/min (>60); Glucose 143 mg/dL (80-110); HDL Cholesterol 46 mg/dL (40-60); HEMOLYSIS < 15 (0-50); LDL Cholesterol Calculated 95 mg/dL (<100); Potassium 4.5 mmol/L (3.4-5.1); Sodium 136 mmol/L (137-145); Triglycerides 138 mg/dL (35-150)
[2023-05-16 10:59] LABS: Microalbumin Urine Random 7.7 mg/dL (0-1.6)
== END ==
PROVIDERS: PCP Registered Nurse Diabetes Educator; Referring Provider Internal Medicine Endocrinology, Diabetes & Metabolism; Visit Provider Internal Medicine Endocrinology, Diabetes & Metabolism
DX: E11.65 Type 2 diabetes mellitus with hyperglycemia (principal); Z79.4 Long term (current) use of insulin
CPT/HCPCS: 36415; 80048; 80061; 82043; 82570; 83036

== ENCOUNTER 2023-05-22 07:52 | Day surgery (SDC) | payer OTHER, SELFPAY ==
[2023-05-22 08:14] VITALS: BP 132/77; PULSE 93; RESP 16; TEMP 36.1; O2SAT 97; BMI 24.9
[2023-05-22] MEDS: LACTATED RINGERS 1,000 ML 150 ML IV (08:32)
--- NOTE | 2023-05-22 09:03 | P.HP_ITS ---
History of Present Illness History of Present Illness Date Patient Seen: 05/22/23 Time Patient Seen: 09:04 Chief complaint: SDC Narrative: Miriam is a 62 year old woman with diabetes who is here for a colonoscopy. Her last and other colonoscopy was 10 years ago and was normal. No family history of colon cancer. She takes insulin for diabetes. [facility] Medical History (Updated 05/22/23 @ 09:05 by Bradley Mccallum MD) Type 2 diabetes mellitus without complication Osteopenia (08/2020) Primary hyperparathyroidism (07/2020) Situational anxiety Screening for malignant neoplasm of breast Pap smear anus w [facility] Uncontrolled diabetes mellitus type 2 without complications Postmenopausal Chickenpox Mumps Hyperlipemia Surgical History Status post laparoscopic cholecystectomy History of third molar tooth extraction Family History Father Type II diabetes mellitus Hyperlipidemia Mother Essential hypertension Social History household members: significant other Smoking Status: Never smoker second hand exposure: No alcohol intake: current substance use type: does not use eating out: 1-3 times/week Type(s) of exercise: walking Meds Home Medications and Allergies Home Medications Medication Instructions Recorded Confirmed Type CHOLECALCIFEROL (VITAMIN D3) 1,000 iu PO Q DAY ##0 11/21/11 02/19/23 History (Vitamin D-3) Fish Oil 1,200 mg PO Q DAY ##0 11/21/11 02/19/23 History MULTIVITAMIN 1 cap PO Q DAY ##0 11/21/11 02/19/23 History fluticasone propionate 50 1 spray intranasal TID PRN allergy 08/24/18 05/22/23 History mcg/actuation nasal symptoms spray,suspension (Flonase Allergy Relief) loratadine 10 mg tablet (Claritin) 10 mg PO DAILY 08/24/18 05/22/23 History coenzyme Q10 100 mg capsule (Co 100 mg PO DAILY 11/17/18 02/19/23 History Q-10) insulin glargine 100 unit/mL (3 40 unit (0.4 mL) SUBCUT DAILY #15 08/16/22 05/22/23 Rx mL) subcutaneous pen (Basaglar mL KwikPen U-100 Insulin) pen needle, diabetic 32 gauge x #100 ea 09/13/22 02/19/23 Rx 5/16 (Comfort EZ Pen [place]) albuterol sulfate 90 mcg/actuation See Rx Instructions .Route 12/18/22 05/22/23 Rx aerosol inhaler .COMPLEX #18 grams atorvastatin 40 mg tablet 40 mg PO BEDTIME #90 tabs 12/19/22 05/22/23 Rx flash glucose sensor (FreeStyle #1 ea 12/19/22 02/19/23 History Jeyson 14 Day Sensor kit) insulin aspart U-100 100 unit/mL 6 unit SUBCUT DAILY 12/19/22 05/22/23 History (3 mL) subcutaneous pen metformin 1,000 mg tablet 1,000 mg PO BID #180 tabs 12/19/22 05/22/23 Rx paroxetine HCl 20 mg tablet (Paxil) 20 mg PO DAILY #90 tabs 12/19/22 05/22/23 Rx pen needle, diabetic 31 gauge x #1,200 ea 12/19/22 02/19/23 History 5/16 (BD Ultra-Fine Short Pen Needle) zinc PO 02/19/23 History Allergies Allergy/AdvReac Type Severity Reaction Status Date / Time No Known Drug Allergies Allergy Verified 05/22/23 08:11 Exam Vital Signs (past 8 hours): - 05/22/23 08:14 Temperature 97 F L Pulse Rate 93 H Respiratory Rate 16 Blood Pressure 132/77 Pulse Oximetry 97 Oxygen Delivery Method Room Air Oxygen Delivery Method Room Air Const General: healthy appearing Assessment & Plan Assessment and plan (1) Colon cancer screening: Status: Acute Plan We reviewed the risks and benefits of colonoscopy for colon cancer screening and she would like to proceed.
--- NOTE | 2023-05-22 10:13 | PM.OP.COLON ---
Operative Date/Time/Diagnoses Date of procedure: 05/22/23 Time of procedure: 10:13 Pre-op diagnosis: Colon cancer screening Post-op diagnosis: same Procedure & Clinicians Study performed: Colonoscopy Surgeon: Bradley Mccallum Procedure Notes Procedure in detail: Surgeon: Bradley Mccallum MD Anesthesia: J Luis Procedure: The patient was brought to the endoscopy suite, placed in left lateral decubitus position. The patient was connected to monitoring devices. A time-out was performed. Sedation was administered. Once the patient was adequately sedated, a digital rectal exam was performed and was normal. The scope was then inserted and advanced to the cecum where the appendiceal orifice was identified and photographed. The scope was then slowly withdrawn over greater than 6 minutes. The mucosa was thoroughly inspected. There was pandiverticulosis. No polyps were found. The scope was retroflexed in the rectum. No other abnormalities were seen. The scope was straightened and removed. The patient was awakened and brought to recovery. Scope withdrawal time: 10 minutes Sedation time: 17 minutes EBL: 0 Findings: Pandiverticulosis Post-procedure Recommendations: Colonoscopy in 10 years Disposition: PACU
[2023-05-22 10:15] VITALS: BP 102/54; PULSE 81; RESP 18; TEMP 36.6; O2SAT 98
[2023-05-22 10:20] VITALS: BP 106/66; PULSE 82; RESP 17; O2SAT 99
[2023-05-22 10:25] VITALS: BP 119/72; PULSE 83; RESP 17; O2SAT 99
[2023-05-22 10:40] VITALS: BP 115/70; PULSE 79; RESP 18; TEMP 36.2; O2SAT 98
== END 2023-05-22 10:40 | disposition home or self-care (01) ==
PROVIDERS: PCP Registered Nurse Diabetes Educator; Referring Provider Surgery; Visit Provider Surgery
PROC: 0DJD8ZZ Inspection of Lower Intestinal Tract, Via Natural or Artificial Opening Endoscopic (ICD-10-PCS; CPT 45378; principal; 2023-05-22 09:00)
DX: Z12.11 Encounter for screening for malignant neoplasm of colon (principal); K57.30 Diverticulosis of large intestine without perforation or abscess without bleeding
CPT/HCPCS: 45378

== ENCOUNTER → 2023-10-02 07:02 | Outpatient (CLI) | payer OTHER, SELFPAY ==
[2023-10-02 08:13] LABS: BUN Creatinine Ratio 28.3 (6-22); Blood Urea Nitrogen 17 mg/dL (7-17); Calcium 10.5 mg/dL (8.4-10.2); Carbon Dioxide 28 mmol/L (22-32); Chloride 104 mmol/L (98-107); Cholesterol 161 mg/dL (140-199); Estimated Glomerular Filt Rate > 60 mL/min (>60); Glucose 136 mg/dL (80-110); HDL Cholesterol 49 mg/dL (40-60); HEMOLYSIS < 15 (0-50); LDL Cholesterol Calculated 79 mg/dL (<100); Potassium 4.3 mmol/L (3.4-5.1); Sodium 137 mmol/L (137-145); Triglycerides 167 mg/dL (35-150)
[2023-10-02 09:32] LABS: Creatinine Urine Random 79.9 mg/dL
[2023-10-02 09:36] LABS: Microalbumi Creatinin Ratio Ur 31.2 ug/mg CR (<30); Microalbumin Urine Random 2.5 mg/dL (0-1.6)
== END ==
PROVIDERS: PCP Registered Nurse Diabetes Educator; Referring Provider Internal Medicine Endocrinology, Diabetes & Metabolism; Visit Provider Internal Medicine Endocrinology, Diabetes & Metabolism
DX: E11.65 Type 2 diabetes mellitus with hyperglycemia (principal); Z79.4 Long term (current) use of insulin
CPT/HCPCS: 36415; 80048; 80061; 82043; 82570; 83036

== ENCOUNTER → 2024-02-07 08:33 | Outpatient (CLI) | payer OTHER, SELFPAY ==
[2024-02-07 10:30] LABS: BUN Creatinine Ratio 27.6 (6-22); Blood Urea Nitrogen 16 mg/dL (7-17); Calcium 10.3 mg/dL (8.4-10.2); Carbon Dioxide 27 mmol/L (22-32); Chloride 104 mmol/L (98-107); Cholesterol 152 mg/dL (140-199); Estimated Glomerular Filt Rate > 60 mL/min (>60); Glucose 140 mg/dL (80-110); HDL Cholesterol 41 mg/dL (40-60); HEMOLYSIS < 15 (0-50); LDL Cholesterol Calculated 86 mg/dL (<100); Phosphorous 2.9 mg/dL (2.8-4.1); Potassium 4.4 mmol/L (3.4-5.1); Sodium 137 mmol/L (137-145); Triglycerides 123 mg/dL (35-150)
[2024-02-07 10:46] LABS: Vitamin D 25 Hydroxy (D3) 76.9 ng/mL (30.0-100.0)
[2024-02-07 11:42] LABS: Creatinine Urine Random 82.24 mg/dL
[2024-02-07 11:50] LABS: Microalbumin Urine Random 2.3 mg/dL (0-1.6)
[2024-02-07 12:44] LABS: Hemoglobin A1C% w Est Avg Glu 7.4 % (4.0-6.0)
[2024-02-08 10:36] LABS: Parathyroid Hormone Int 96 pg/mL (15-65)
== END ==
PROVIDERS: PCP Registered Nurse Diabetes Educator; Referring Provider Internal Medicine Endocrinology, Diabetes & Metabolism; Visit Provider Internal Medicine Endocrinology, Diabetes & Metabolism
DX: E11.65 Type 2 diabetes mellitus with hyperglycemia (principal); Z94.4 Liver transplant status; E21.3 Hyperparathyroidism, unspecified
CPT/HCPCS: 36415; 80048; 80061; 82043; 82306; 82570; 83036; 83970; 84100

== ENCOUNTER → 2024-03-04 15:35 | Outpatient (CLI) | payer OTHER, SELFPAY ==
--- NOTE | 2024-03-04 15:35 | DI.MG.S_ITS ---
BILATERAL DIGITAL SCREENING MAMMOGRAM 3D/2D WITH CAD: 03/04/2024 CLINICAL: Routine screening. Comparison is made to exams dated: 02/10/2023 mammogram, 02/07/2022 mammogram, 06/28/2020 mammogram, and 06/08/2018 mammogram - [facility]. There are scattered areas of fibroglandular density (category b / 25%-50% glandular tissue). Current study was also evaluated with a Computer Aided Detection (CAD) system. No significant masses, calcifications, or other findings are seen in either breast. There has been no significant interval change. IMPRESSION: NEGATIVE There is no mammographic evidence of malignancy. A 1 year screening mammogram is recommended. Based on the Tyrer Cuzick model (a risk assessment model) the patient's lifetime risk is 6.0% and her 10 year risk is 2.7%. According to the ACR, ACS, and NCCN guidelines, an annual breast MRI exam along with mammogram is recommended if the patient's lifetime risk is 20% or greater. This exam was interpreted at Station ID: [id number]. NOTE: For mammograms, a report in lay terms will be sent to the patient. Approximately 15% of breast malignancies will not be visualized mammographically. In the management of a palpable breast mass, a negative mammogram must not discourage biopsy of a clinically suspicious lesion. Electronically Signed By: Salbador barney/kenn:03/05/2024 12:58:39 letter sent: Normal Exam ACR BI-RADS Category 1: Negative
== END ==
LOC: MAMMO 15:35
PROVIDERS: PCP Registered Nurse Diabetes Educator; Referring Provider Registered Nurse Diabetes Educator; Visit Provider Registered Nurse Diabetes Educator
DX: Z12.31 Encounter for screening mammogram for malignant neoplasm of breast (principal)
CPT/HCPCS: 77063; 77067

== ENCOUNTER → 2024-04-01 14:57 | Outpatient (CLI) | payer OTHER, SELFPAY ==
--- NOTE | 2024-04-01 | DI.US.S_ITS ---
PROCEDURE: US THYROID INDICATIONS: multiple thyroid nodules TECHNIQUE: Real-time scanning was performed of the thyroid gland, with image documentation. COMPARISON: [facility], [place], US THYROID, 02/21/2021, 10:55. [facility], [place], US THYROID, 01/02/2023, 12:19. [facility], [place], US THYROID, 02/26/2023, 15:07. FINDINGS: Thyroid: Right lobe measures 4.2 x 1.3 x 1.5 cm. Left lobe measures 4.6 x 1.9 x 1.8 cm. Isthmus is 0.4 cm thick. Echotexture is homogeneous. Nodule number: 1 Location: Left midpole Size: 2.3 x 1.8 x 1.7 cm, previously 2.1 x 1.5 x 1.5 cm. Minimally increased size Composition: Predominantly cystic Echogenicity: Anechoic Shape: wider than tall. Margins: Smooth Echogenic foci: No Total points: 0 ACR TI-RADS category: One Nodule number: 2 Location: Left inferior pole Size: 0.7 x 0.6 x 0.5 cm, previously 0.9 x 0.5 x 0.8 cm. Decreased size Composition: Solid Echogenicity: Isoechoic Shape: wider than tall. Margins: Smooth Echogenic foci: Punctate Total points: Six ACR TI-RADS category: Four Nodule number: 3 Location: Right midpole Size: 0.9 x 0.6 x 0.7 cm, previously 0.9 x 0.8 x 0.8 cm. Minimally decreased in size Composition: Solid Echogenicity: Unable to tell Shape: wider than tall. Margins: Smooth Echogenic foci: Macro calcification Total points: Three ACR TI-RADS category: Three Nodule number: 4 Location: Right isthmus Size: 0.6 x 0.7 x 0.3 cm, previously 0.7 x 0.5 x 0.7 cm. Composition: Spongiform Total points: 0 ACR TI-RADS category: One IMPRESSION: Nodular thyroid gland as detailed above without significant change in any nodule. Recommend follow-up in two years. ACR TI-RADS definitions and recommendations: TI-RADS 1 (benign): 0 points. FNA not needed. TI-RADS 2 (not suspicious): 2 points. FNA not needed. TI-RADS 3: 3 points. * FNA if 2.5 cm or larger, follow up if 1.5 cm or larger (at 1, 3, and 5 years). TI-RADS 4: 4-6 points. * FNA if 1.5 cm or larger, follow up if 1 cm or larger (at 1, 2, 3, and 5 years). TI-RADS 5: 7 points or more. * FNA if 1 cm or larger, follow up if 0.5 cm or larger (every year for 5 years). Dictated by: Symone Gomez M.D. on 04/01/2024 at 23:38 Approved by: Symone Gomez M.D. on 04/01/2024 at 23:50
== END ==
PROVIDERS: PCP Registered Nurse Diabetes Educator; Referring Provider Internal Medicine Endocrinology, Diabetes & Metabolism; Visit Provider Internal Medicine Endocrinology, Diabetes & Metabolism
DX: E04.2 Nontoxic multinodular goiter (principal)
CPT/HCPCS: 76536

== ENCOUNTER → 2024-07-24 08:39 | Outpatient (CLI) | payer OTHER, SELFPAY ==
[2024-07-24 10:10] LABS: Hemoglobin A1C% w Est Avg Glu 6.9 % (4.0-6.0)
[2024-07-24 10:12] LABS: BUN Creatinine Ratio 24.6 (6-22); Blood Urea Nitrogen 16 mg/dL (7-17); Calcium 10.3 mg/dL (8.4-10.2); Carbon Dioxide 27 mmol/L (22-32); Chloride 103 mmol/L (98-107); Cholesterol 205 mg/dL (140-199); Estimated Glomerular Filt Rate > 60 mL/min (>60); Glucose 121 mg/dL (80-110); HDL Cholesterol 59 mg/dL (40-60); HEMOLYSIS < 15 (0-50); LDL Cholesterol Calculated 119 mg/dL (<100); Potassium 4.5 mmol/L (3.4-5.1); Sodium 139 mmol/L (137-145); Triglycerides 133 mg/dL (35-150)
[2024-07-24 10:13] LABS: Alanine Aminotransferase 24 IU/L (<35); Albumin 4.7 g/dL (3.5-5.0); Albumin Globulin Ratio 1.6 (1.0-2.8); Alkaline Phosphatase 90 U/L (38-126); Aspartate Aminotransferase 25 IU/L (14-36); Bilirubin Total 0.5 mg/dL (0.2-1.3); Bilirubin Unconjugated 0.5 mg/dL (0.0-1.1); HEMOLYSIS < 15 (0-50); Total Protein 7.7 g/dL (6.3-8.2)
[2024-07-25 11:11] LABS: Calcium 10.5 mg/dL (8.7-10.3); Ionized Calcium 5.5 mg/dL (4.5-5.6); Parathyroid Hormone, Intact 83 pg/mL (15-65)
== END ==
PROVIDERS: PCP Registered Nurse Diabetes Educator; Referring Provider Internal Medicine Endocrinology, Diabetes & Metabolism; Visit Provider Internal Medicine Endocrinology, Diabetes & Metabolism
DX: E11.65 Type 2 diabetes mellitus with hyperglycemia (principal); Z94.4 Liver transplant status; E21.3 Hyperparathyroidism, unspecified; R74.8 Abnormal levels of other serum enzymes
CPT/HCPCS: 36415; 80048; 80061; 80076; 82310; 82330; 83036; 83970

== ENCOUNTER → 2025-02-26 09:01 | Outpatient (CLI) | payer OTHER, SELFPAY ==
[2025-02-26 10:14] LABS: Hematocrit 41.9 % (36-46); Hemoglobin 14.4 g/dL (12.0-16.0); Mean Corpuscular HGB Conc 34.3 % (30-36); Mean Corpuscular Hemoglobin 32.8 PG (26-34); Mean Corpuscular Volume 95.6 fL (80-100); Platelet Count 367 X10^3/uL (150-400)
[2025-02-26 10:43] LABS: Hemoglobin A1C% w Est Avg Glu 7.2 % (4.0-6.0)
[2025-02-26 10:44] LABS: Alanine Aminotransferase 26 IU/L (<35); Albumin 5.0 g/dL (3.5-5.0); Albumin Globulin Ratio 1.6 (1.0-2.8); Alkaline Phosphatase 89 U/L (38-126); Blood Urea Nitrogen 15 mg/dL (7-17); Calcium 11.2 mg/dL (8.4-10.2); Carbon Dioxide 27 mmol/L (22-32); Chloride 102 mmol/L (98-107); Cholesterol 181 mg/dL (140-199); Estimated Glomerular Filt Rate > 60 mL/min (>60); Globulin 3.1 g/dL (1.7-4.1); Glucose 94 mg/dL (70-99); HDL Cholesterol 47 mg/dL (40-60); HEMOLYSIS < 15 (0-50); Potassium 4.8 mmol/L (3.4-5.1); Sodium 139 mmol/L (137-145); Total Protein 8.1 g/dL (6.3-8.2); Triglycerides 168 mg/dL (35-150)
[2025-02-26 11:09] LABS: TSH w/ Reflex to FT4 0.83 uIU/mL (0.47-4.68)
[2025-02-26 11:31] LABS: Microalbumi Creatinin Ratio Ur 28.0 ug/mg CR (<30)
== END ==
PROVIDERS: PCP Registered Nurse Diabetes Educator; Referring Provider Registered Nurse Diabetes Educator; Visit Provider Registered Nurse Diabetes Educator
DX: E11.9 Type 2 diabetes mellitus without complications (principal); Z79.4 Long term (current) use of insulin; E21.0 Primary hyperparathyroidism
CPT/HCPCS: 36415; 80053; 80061; 82043; 82570; 83036; 84443; 85027